=== PATIENT | male | born 1980 | race Caucasian/White ===

== ENCOUNTER 2017-12-03 13:39 | Emergency (ER) | payer BC ==
[2017-12-03] MEDS ORDERED: Ketorolac 60 MG/2 ML SDV IM ONE (14:05)
--- NOTE | 2017-12-03 14:16 | EDM.PDOC ---
ED HPI GENERAL MEDICAL PROBLEM - General Chief Complaint: Headache Stated Complaint: HEADACHE/COUGH Time Seen by Provider: 12/03/17 13:47 Source of Information: Reports: Patient History Limitations: Reports: No Limitations - History of Present Illness INITIAL COMMENTS - FREE TEXT/NARRATIVE: Patient is a 37-year-old male presents ED complaining of sinus congestion, cough , and migraine headache for the past couple days. Patient recently completed a 14 day course of Augmentin for sinusitis. States his cough has been nonproductive since sinusitis improving. States over the past few days has developed a left-sided headache, constant, throbbing in nature that waxes and wanes. He has not taken any meds for the discomfort. Usually takes ibuprofen but notes he ran out of this med. States this morning the headache wraps around to the other side. Describes it as a tension-like headache. Headache was gradual in onset. Not described as a worse headache of his life. There's been no fever, nuchal rigidity, vision changes, nausea vomiting, and/or focal neurological deficits. States he's been under a lot more stress recently due to work. Patient smokes one pack of cigarettes per day. Denies recreational drug use. Alcohol use is seldom. He was diagnosed with migraine by his PCP. - Related Data Allergies Allergy/AdvReac Type Severity Reaction Status Date / Time No Known Allergies Allergy Verified 12/03/17 13:50 Home Meds: Home Meds . [No Known Home Meds] 12/03/17 [History] Past Medical History HEENT History: Reports: Impaired Vision - Past Surgical History Musculoskeletal Surgical History: Reports: Other (See Below) Other Musculoskeletal Surgeries/Procedures:: diskectomy, fusion, hardware removal of back Social & Family History - Tobacco Use Smoking Status *Q: Current Every Day Smoker Years of Tobacco use: 5 Packs/Tins Daily: 1 Used Tobacco, but Quit: No Second Hand Smoke Exposure: No - Caffeine Use Caffeine Use: Reports: Coffee, Energy Drinks - Recreational Drug Use Recreational Drug Use: No ED ROS GENERAL - Review of Systems Review Of Systems: See Below Constitutional: Reports: No Symptoms HEENT: Denies: Ear Discharge, Ear Pain, Rhinitis, Sinus Problem, Throat Pain, Throat Swelling, Vision Change Respiratory: Reports: No Symptoms Cardiovascular: Reports: No Symptoms GI/Abdominal: Reports: No Symptoms Musculoskeletal: Reports: No Symptoms Skin: Reports: No Symptoms Neurological: Reports: Headache. Denies: Dizziness, Numbness (tension type), Tingling Psychiatric: Reports: No Symptoms - Physical Exam Exam: See Below Exam Limited By: No Limitations General Appearance: Alert, WD/WN, No Apparent Distress Eye Exam: Bilateral Eye: EOMI, Normal Inspection, Nystagmus (none noted), PERRL Ears: Normal External Exam, Normal Canal, Hearing Grossly Normal, Normal TMs Nose: Normal Inspection, Normal Mucosa, No Blood Throat/Mouth: Normal Inspection, Normal Oropharynx, Normal Voice, No Airway Compromise Head Exam: Atraumatic, Normocephalic Neck: Normal Inspection, Supple, Non-Tender, Full Range of Motion. No: Lymphadenopathy (L), Lymphadenopathy (R) Respiratory/Chest: No Respiratory Distress, Lungs Clear, Normal Breath Sounds, No Accessory Muscle Use, Chest Non-Tender Cardiovascular: Normal Peripheral Pulses, Regular Rate, Rhythm Neuro Exam (Abbreviated): Alert, Oriented, CN II-XII Intact, Normal Cognition, Normal Gait, No Motor/Sensory Deficits Skin Exam: Warm, Dry, Intact, Normal Color Course - Vital Signs Last Recorded V/S: Last Vital Signs Temp 97.2 F 12/03/17 13:47 Pulse 79 12/03/17 13:47 Resp 18 12/03/17 13:47 BP 155/96 H 12/03/17 13:47 Pulse Ox 97 12/03/17 13:47 - Orders/Labs/Meds Meds: Medications Discontinued Medications Generic Name Dose Route Start Last Admin Trade Name Delfina PRN Reason Stop Dose Admin Ketorolac Tromethamine 60 mg 12/03/17 14:05 12/03/17 14:10 Toradol IM 12/03/17 14:06 60 mg ONETIME ONE Administration - Re-Assessments/Exams Free Text/Narrative Re-Assessment/Exam: Patient has a tension headache. Ordered toradol 60mg IM. NO testing is required. Patient ran out of ibuprofen thus is being evaluated here for therapy. Examination was benign. He will be discharged home with instructions as documented. Departure - Departure Time of Disposition: 14:14 Disposition: Home, Self-Care 01 Condition: Good Clinical Impression: Tension-type headache - Discharge Information *PRESCRIPTION DRUG MONITORING PROGRAM REVIEWED*: Not Applicable *COPY OF PRESCRIPTION DRUG MONITORING REPORT IN PATIENT BRYN: Not Applicable Instructions: Tension Headache, Adult Referrals: PCP,Not In Area [Primary Care Provider] - Forms: ED Department Discharge Additional Instructions: Take ibuprofen 600mg every 6 hrs for headache. Push the fluids. May use flonase 2 sprays each a.m. and take claritan 10mg everyday. F/U with PCP in the next week for reevaluation. Return to the E.D. if you develop any new or worsening symptoms.
== END 2017-12-03 14:20 | disposition home or self-care (01) ==
LOC: JD.ED 13:39
DX: G44.209 Tension-type headache, unspecified, not intractable (principal); F17.210 Nicotine dependence, cigarettes, uncomplicated
CPT/HCPCS: 96372; 99283; J1885

== ENCOUNTER 2018-05-01 15:53 | Emergency (ER) | payer BC ==
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
[2018-05-01] MEDS ORDERED: Albuterol/Ipratropium 3.0-0.5 MG/3 ML Neb Soln NEB ONE (16:24)
--- NOTE | 2018-05-02 08:48 | CR ---
Chest: Two views of the chest were obtained. Comparison: No prior chest x-ray. Opacity is seen on the lateral view overlapping the mediastinum. This is not seen on the frontal view and uncertain if this is superficial and not included on the frontal view or represents artifact. Heart size and mediastinum are normal. Lungs are clear. Bony structures are unremarkable. Impression: 1. Opacity as described above. 2. Nothing acute is appreciated. Diagnostic code #2
== END 2018-05-01 17:50 | disposition home or self-care (01) ==
LOC: JD.ED 15:53
DX: J06.9 Acute upper respiratory infection, unspecified (principal); J45.909 Unspecified asthma, uncomplicated; F17.210 Nicotine dependence, cigarettes, uncomplicated
CPT/HCPCS: 71046; 71046-26; 94640; 99283; 99284-25; J7620-GY

== ENCOUNTER 2018-05-04 14:30 | Emergency (ER) | payer BC ==
[2018-05-04] MEDS ORDERED: Albuterol 0.083% 2.5 MG/3 ML Neb Soln NEB ONE ×2 (15:38→17:12)
[2018-05-04] MEDS ORDERED: Acetaminophen 325 MG Tab PO STA (15:47)
[2018-05-04] MEDS ORDERED: Acetaminophen/HYDROcodone 325-5 MG Tab PO ONE (17:12)
[2018-05-04] MEDS ORDERED: predniSONE 20 MG Tab PO ONE (17:14)
[2018-05-04] MEDS ORDERED: Azithromycin 250 MG Tab PO ONE (17:55)
--- NOTE | 2018-05-04 18:00 | EDM.PDOC ---
ED HPI GENERAL MEDICAL PROBLEM - General Chief Complaint: Respiratory Problem Stated Complaint: CHEST PAIN HARD TIME BREATHING Time Seen by Provider: 05/04/18 14:48 Source of Information: Reports: Patient, RN Notes Reviewed - History of Present Illness INITIAL COMMENTS - FREE TEXT/NARRATIVE: 37 year old male with onset of cough, sherlyn. about 5 to 7 days ago. Was seen here in the ED 3 days ago, dx'd with viral URI, prescribed an inhaler. He states the cough, wheezing worsening. Has Colvin, muscle aches, fever, chills, low energy. Treatments QUOTER: Reports: NSAIDS Chest Pain Score (Numeric/FACES): 9 - Related Data Allergies Allergy/AdvReac Type Severity Reaction Status Date / Time No Known Allergies Allergy Verified 05/04/18 14:41 Home Meds: Home Meds Albuterol [Proventil HFA] 1 inh INH ASDIRECTED 05/01/18 [History] Albuterol [Ventolin HFA] 2 puff INH Q4H PRN #1 inhaler 05/01/18 [Rx] Past Medical History HEENT History: Reports: Impaired Vision Cardiovascular History: Reports: Hypertension Respiratory History: Reports: Asthma - Past Surgical History Musculoskeletal Surgical History: Reports: Other (See Below) Other Musculoskeletal Surgeries/Procedures:: diskectomy, fusion, hardware removal of back Social & Family History - Tobacco Use Smoking Status *Q: Current Every Day Smoker Years of Tobacco use: 10 Packs/Tins Daily: 1 - Caffeine Use Caffeine Use: Reports: None ED ROS GENERAL - Review of Systems Review Of Systems: See Below Constitutional: Reports: Fever, Chills HEENT: Reports: Rhinitis, Sinus Problem, Throat Pain Respiratory: Reports: Shortness of Breath, Wheezing, Cough Cardiovascular: Reports: Chest Pain (with coughing) GI/Abdominal: Denies: Abdominal Pain, Diarrhea, Nausea, Vomiting Musculoskeletal: Reports: Other (generalized achiness) Neurological: Reports: Dizziness, Headache ED EXAM, GENERAL - Physical Exam Exam: See Below General Appearance: Alert, Moderate Distress Eye Exam: Bilateral Eye: PERRL Ear Exam: Bilateral Ear: TM normal Nose: Nasal Drainage, Clear Rhinorrhea Throat/Mouth: Inflammation (mild, no exudate) Neck: Normal Inspection, Supple, Full Range of Motion. No: Lymphadenopathy (L) Respiratory/Chest: Wheezing (bilat) Cardiovascular: Regular Rate, Rhythm GI/Abdominal: Soft, Non-Tender Extremities: Normal Inspection, Normal Range of Motion Neurological: Alert, Oriented, No Motor/Sensory Deficits Skin Exam: Warm, Dry, Normal Color, No Rash Course - Vital Signs Last Recorded V/S: Last Vital Signs Temp 98.6 F 05/04/18 17:33 Pulse 106 H 05/04/18 17:33 Resp 21 H 05/04/18 17:33 BP 117/72 05/04/18 17:33 Pulse Ox 95 05/04/18 17:33 - Orders/Labs/Meds Orders: Active Orders 24 hr Category Date Time Status RT Aerosol Therapy [RC] ASDIRECTED Care 05/04/18 15:38 Active RT Aerosol Therapy [RC] ASDIRECTED Care 05/04/18 17:13 Active Labs: Laboratory Tests 05/04/18 05/04/18 Range/Units 16:12 16:12 WBC 8.34 (4.23-9.07) K/mm3 RBC 5.15 (4.63-6.08) M/mm3 Hgb 15.1 (13.7-17.5) gm/L Hct 44.2 (40.1-51.0) % MCV 85.8 (79.0-92.2) fl MCH 29.3 (25.7-32.2) pg MCHC 34.2 (32.2-35.5) g/dl RDW Std Deviation 41.4 (35.1-43.9) fL Plt Count 251 (163-337) K/mm3 MPV 10.6 (9.4-12.3) fl Neut % (Auto) 57.5 (34.0-67.9) % Lymph % (Auto) 25.7 (21.8-53.1) % [place] % (Auto) 13.7 H (5.3-12.2) % Eos % (Auto) 2.3 (0.8-7.0) Baso % (Auto) 0.7 (0.1-1.2) % Neut # (Auto) 4.80 (1.78-5.38) K/mm3 Lymph # (Auto) 2.14 (1.32-3.57) K/mm3 [place] # (Auto) 1.14 H (0.30-0.82) K/mm3 Eos # (Auto) 0.19 (0.04-0.54) K/mm3 Baso # (Auto) 0.06 (0.01-0.08) K/mm3 Manual Slide Review Normal smear Sodium 137 (136-145) mEq/L Potassium 3.7 (3.5-5.1) mEq/L Chloride 101 (98-107) mEq/L Carbon Dioxide 23 (21-32) mEq/L Anion Gap 16.7 H (5-15) BUN 11 (7-18) mg/dL Creatinine 1.1 (0.7-1.3) mg/dL Est Cr Clr Drug Dosing 115.08 mL/min Estimated GFR (MDRD) > 60 (>60) mL/min BUN/Creatinine Ratio 10.0 L (14-18) Glucose 92 (74-106) mg/dL Calcium 9.5 (8.5-10.1) mg/dL Total Bilirubin 0.8 (0.2-1.0) mg/dL AST 28 (15-37) U/L ALT 31 (16-63) U/L Alkaline Phosphatase 93 (46-116) U/L Total Protein 8.3 H (6.4-8.2) g/dl Albumin 4.1 (3.4-5.0) g/dl Globulin 4.2 gm/dL Albumin/Globulin Ratio 1.0 (1-2) Meds: Medications Discontinued Medications Generic Name Dose Route Start Last Admin Trade Name Delfina PRN Reason Stop Dose Admin Acetaminophen 975 mg 05/04/18 15:47 05/04/18 15:59 Tylenol PO 05/04/18 15:48 975 mg NOW STA Administration Hydrocodone Bitart/Acetaminophen 1 tab 05/04/18 17:12 05/04/18 17:32 Guin 325-5 Mg PO 05/04/18 17:13 1 tab ONETIME ONE Administration Albuterol 2.5 mg 05/04/18 15:38 05/04/18 15:49 Proventil Neb Soln NEB 05/04/18 15:39 2.5 mg ONETIME ONE Administration Albuterol 2.5 mg 05/04/18 17:12 05/04/18 17:25 Proventil Neb Soln NEB 05/04/18 17:13 2.5 mg ONETIME ONE Administration Azithromycin 500 mg 05/04/18 17:55 05/04/18 18:11 Zithromax PO 05/04/18 17:56 500 mg ONETIME ONE Administration Prednisone 40 mg 05/04/18 17:14 05/04/18 17:33 Prednisone PO 05/04/18 17:15 40 mg ONETIME ONE Administration - Re-Assessments/Exams Free Text/Narrative Re-Assessment/Exam: 05/05/18 14:47 CXR normal, infl screen neg. Departure - Departure Time of Disposition: 17:55 Disposition: Home, Self-Care 01 Condition: Fair Clinical Impression: Bronchitis, Wheezing - Discharge Information Instructions: Acute Bronchitis, Adult Referrals: PCP,None [Primary Care Provider] - Forms: ED Department Discharge Additional Instructions: zithromax as prescribed, next dose tomorrow morning, prednisone as prescribed, next dose tomorrow morning, continue using albuterol inhaler, alternate tylenol and advil or ibuprofen as needed, vaporizer or steam as needed. Follow up clinic in about 2 to 3 days for recheck, return to ED if symptoms worsening in any way. - My Orders Last 24 Hours: My Active Orders 05/04/18 15:38 RT Aerosol Therapy [RC] ASDIRECTED 05/04/18 17:13 RT Aerosol Therapy [RC] ASDIRECTED - Assessment/Plan Last 24 Hours: My Active Orders 05/04/18 15:38 RT Aerosol Therapy [RC] ASDIRECTED 05/04/18 17:13 RT Aerosol Therapy [RC] ASDIRECTED
--- NOTE | 2018-05-05 08:17 | CR ---
Chest: Portable view of the chest was obtained. Comparison: Prior chest x-ray of 05/01/18. Heart size and mediastinum are normal. Lungs are clear. Bony structures are unremarkable. Impression: 1. Nothing acute is seen on portable chest x-ray. Diagnostic code #1
== END 2018-05-04 18:20 | disposition home or self-care (01) ==
LOC: JD.ED 14:30
DX: J40 Bronchitis, not specified as acute or chronic (principal); I10 Essential (primary) hypertension; F17.210 Nicotine dependence, cigarettes, uncomplicated; Z79.899 Other long term (current) drug therapy
CPT/HCPCS: 36415; 71045; 80053; 85025; 87804; 94640; 99285; A9270; 99283